=== PATIENT | male | born 1975 | race Caucasian/White ===

== ENCOUNTER 2024-11-14 18:11 | Emergency (ER) | payer MEDICAID ==
[~2024-11-14] VITALS: Ht 185.4 cm; Wt 90.9 kg
[2024-11-14 18:14] VITALS: TEMP 97.9
[2024-11-14 20:53] VITALS: BP 132/85; PULSE 94; RESP 18; O2SAT 96
== END 2024-11-14 21:16 | disposition home or self-care (01) ==
LOC: EMS 18:13
DX: F41.9 Anxiety disorder, unspecified (principal); F20.9 Schizophrenia, unspecified
CPT/HCPCS: 99283; Z7502

== ENCOUNTER 2024-11-21 19:29 | Emergency (ER) | payer MEDICAID ==
[~2024-11-21] VITALS: Ht 185.4 cm; Wt 90.9 kg
[2024-11-21 19:29] VITALS: TEMP 97.2
[2024-11-21 20:24] LABS: COVID AG,FIA SOURCE NASAL SWAB
[2024-11-21 20:43] LABS: INFLUENZA TYPE A NEGATIVE FOR TYPE A (NEGATIVE); INFLUENZA TYPE B NEGATIVE FOR TYPE B (NEGATIVE); SARS-COV2 (COVID) ANTIGEN,FIA Negative (Negative)
[2024-11-21 20:52] VITALS: BP 138/63; PULSE 89; RESP 18; O2SAT 98
[2024-11-21 21:04] LABS: PLATELET COUNT (AUTO) 216 K/uL (150-450); RED BLOOD CELL COUNT(AUTO) 5.06 MIL/uL (4.50-5.90); RED CELL DISTRIBUTION WIDTH 13.2 % (11.5-14.5); WHITE BLOOD COUNT (AUTO) 9.2 K/uL (4.5-11.0)
[2024-11-21 21:14] LABS: CALCIUM, TOTAL 8.8 mg/dL (8.8-10.5); CREATININE 1.14 mg/dL (0.60-1.30); GLOMERULAR FILTR. RATE CALC > 60 mL/min (>60); GLUCOSE,RANDOM 97 mg/dL (70-110); SODIUM SERUM 144 mmol/L (136-145); UREA NITROGEN, BLOOD 7 mg/dL (7-18)
[2024-11-21] MEDS: ALBUTEROL SULFATE HFA 90 MCG/PUFF 8 GM INHALER IH ONE (22:32)
== END 2024-11-21 23:28 | disposition home or self-care (01) ==
LOC: EMS 19:29
DX: R06.02 Shortness of breath (principal); F20.9 Schizophrenia, unspecified; Z20.822 Contact with and (suspected) exposure to COVID-19
CPT/HCPCS: 99284; 71045; 87426; 80048; 85025; 87804; 36415; 94640; J3535